=== PATIENT | female | born 1975 | race Caucasian/White ===

== ENCOUNTER → 2024-01-17 18:21 | Outpatient (REF) | payer OTHER, SELFPAY | LOC: WDC 18:21 | PROVIDERS: ATTENDING PHYSICIAN Obstetrics & Gynecology Gynecology; FAMILY PHYSICIAN Internal Medicine | DX: Z12.31 Encounter for screening mammogram for malignant neoplasm of breast (principal) | CPT/HCPCS: 77063; 77067 ==

== ENCOUNTER → 2024-01-28 09:48 | Outpatient (REF) | payer OTHER, SELFPAY | LOC: WDC 09:48 | PROVIDERS: ATTENDING PHYSICIAN Obstetrics & Gynecology Gynecology; FAMILY PHYSICIAN Internal Medicine | DX: R92.8 Other abnormal and inconclusive findings on diagnostic imaging of breast (principal) | CPT/HCPCS: 76642 ==

== ENCOUNTER 2024-09-09 15:09 | Emergency (ER) | payer OTHER, SELFPAY ==
[2024-09-09 15:14] VITALS: BP 151/116
--- NOTE | 2024-09-09 19:38 | ED.GENMED ---
History of Present Illness
General
Chief Complaint: Fall
Source: patient
Time Seen by Provider: 09/09/24 19:24
History of Present Illness
History of Present Illness:
Note:
CHIEF COMPLAINT(S)
Chip tooth and lip laceration following a fall.
HISTORY OF PRESENT ILLNESS
The patient is an 49-year-old female who presented for evaluation of a chipped tooth and a lacerated lip following a fall that occurred yesterday morning. According to the patient, she tripped and hit her tooth, which resulted in chipping. She also
sustained a laceration to her lip. The patient caught herself on the railing during the fall and reported hitting her head lightly. She did not lose consciousness, and confirms no associated head, neck, back, or chest pain following the incident.
There have been no symptoms of numbness or tingling in the extremities.
The patient expressed concern about possible infection and desired reassurance about the healing process. She noted that the lip laceration appeared bruised and mentioned the use of castor oil and Vaseline to keep the area moist and clean. The plan
is to continue using Vaseline and warm rinses to aid healing. The patient acknowledged no immediate need for dental intervention beyond cosmetic concerns, as the chipped tooth was classified as an Khan Class 1 fracture, indicating it did not
penetrate the pulp.
The patient also mentioned her mothers concurrent cardiac test, indicating family support and concern-related stress due to her mothers ongoing health evaluation.
During the discussion, a tetanus vaccination was recommended due to the presence of an open wound, and the patient agreed to receive the vaccination.
SOCIAL DETERMINANTS AFFECTING HEALTH
The patient mentioned family stress related to her mothers cardiac testing and mentioned having three cats and a dog who sleep with her, indicating a pet-friendly environment that could pose slight infection risks post-laceration.
PAST MEDICAL HISTORY
The patient reported spinal stenosis and degenerative disease affecting her daily life, having been present for 13-15 years.
SOCIAL HISTORY
The patient denied chronic alcohol use but did not mention tobacco or illicit drug use.
MEDICATIONS
The patient takes Ibuprofen as needed for discomfort.
PHYSICAL EXAM
General: Alert, no acute distress.
Skin: Healing laceration on lip, advised to keep area clean and moist.
Head: Normocephalic, atraumatic.
Neck: Supple, trachea midline, no C-spine tenderness.
Eye Ears, Nose, Mouth and Throat: Oral mucosa moist, presence of Khan Class 1 fracture on tooth number 9, no looseness of teeth.
Cardiovascular: Normal peripheral perfusion, no edema.
Respiratory: Respirations are non-labored.
Gastrointestinal: Abdomen nondistended.
Back: Normal range of motion, normal alignment, no midline tenderness.
Musculoskeletal: Normal range of motion, normal strength.
Neurological: Alert and oriented to person, place, time, and situation, cranial nerves intact, no focal neurological deficits observed.
Psychiatric: Cooperative, appropriate mood & affect.
PROBLEM LIST
Acute Problems:
1. Lip laceration
2. Khan Class 1 fracture of tooth
Chronic Problems:
1. Spinal stenosis
2. Degenerative disc disease
PLAN
1. Continue using Vaseline and performing warm rinses to promote healing of the lip laceration.
2. Administer tetanus vaccine due to an open wound.
3. Encourage follow-up with a dentist for cosmetic concerns regarding the chipped tooth.
4. Advise against allowing pets to lick the wound and maintain good hygiene practices.
DIFFERENTIAL DIAGNOSIS
The differential diagnosis includes, in no particular order and is not limited to:
1. Soft tissue contusion
2. Lip laceration
3. Dental fracture
4. Maxillofacial trauma
5. Head injury without concussion
6. Spinal injury
7. Dental infection (possible future complication)
8. Tetanus risk due to injury
9. Stress-related symptom exacerbation
10. Infection due to domestic animals (preventative measure advised)
CARE-UPDATE
09/09/24 - 19:41
Addendum: Patients friend reports that the patient experienced a fall yesterday. No further details about injuries or symptoms related to the fall were provided during the conversation. Monitoring for any delayed symptoms or concerns is advised.
CARE-UPDATE
09/09/24 - 19:43
The patient was noted to be hypotensive in the emergency department. She reports feeling stressed due to her recent visit and fall, compounded by her concern for her mothers emergent chest pain situation. Patient agrees to follow up with her doctor
for repeat blood pressure measurements.
Disposition:
SUMMARY OF ENCOUNTER
The patient, a 49-year-old female, was evaluated in the emergency department following a fall that resulted in a chipped tooth and a lacerated lip. The patient did not lose consciousness and reported no neck or spine symptoms, indicating no
significant head or spinal injury. Her vital signs showed hypotension, likely related to stress due to her mother�s health condition. During the visit, a tetanus vaccination was administered due to the open wound on her lip. The lip laceration could
not be repaired as it occurred the day prior. No immediate dental intervention was deemed necessary apart from cosmetic concerns, and she was advised to follow up with a dentist.
DISPOSITION
Discharge.
ASSESSMENT
The patient sustained a lip laceration and an Khan Class 1 fracture of a tooth following a fall. There were no signs of significant head or neck injury, and she expressed anxiety potentially contributing to her hypertensive event.
PLAN
1. Continue to use Vaseline and perform warm rinses for lip laceration healing.
2. Given tetanus vaccination due to the risk of infection from an open wound.
3. Strongly advised dental follow-up for the chipped tooth, primarily to address cosmetic concerns.
4. The patient was counseled on stress management due to her mothers concurrent cardiac evaluation and advised to maintain close follow-up with her primary care provider.
PATIENT EDUCATION AND COUNSELING
The patient was advised on the importance of keeping the laceration clean and the use of Vaseline and warm rinses. She was educated about the potential risks of infection due to her pet-friendly environment and advised against letting pets lick the
wound.
FOLLOW-UP INSTRUCTIONS
The patient was instructed to follow up with a dentist for her chipped tooth and to schedule an appointment with her primary care physician to monitor her blood pressure due to noted hypertension and anxiety during this visit.
MEDICATION RECONCILIATION
1. Tetanus vaccine administered in the emergency department.
2. Ibuprofen, as needed for discomfort (as the patient reported taking it prior).
MEDICAL DECISION MAKING
-Number and Complexity of Problems Addressed:
Chronic conditions affecting care include spinal stenosis and degenerative disc disease. Differential diagnosis includes soft tissue contusion, lip laceration, dental fracture, maxillofacial trauma, head injury without concussion, stress-related
symptom exacerbation, and potential infection due to domestic animals. Uncontrolled hypertension.
-Data:
Category 2
Clinical information was obtained from an independent historian noted as the patients friend, who reported the fall occurred yesterday.
-Risk:
Consideration of Admission/Observation: Escalation of care, including admission/observation, was considered given the complexity and risk of the patients presenting complaint, exam findings, and their underlying comorbidities. However, ultimately, I
feel the patient is safe for outpatient management with close follow-up. Reasoning: Work-up reassuring, does not reveal any acute life/organ threatening processes, patients symptoms well controlled upon reevaluation, reexamination is reassuring,
vitals are stable, patient agreeable with discharge, reliable for follow-up.
Care significantly affected by Social Determinants of Health: Patients stress due to her mothers cardiac evaluation.
DIAGNOSIS
1. Lip laceration (S01.511A)
2. Khan Class 1 fracture of tooth (S02.5XXA)
3. Hypertension due to stress
Past History
Past History
ED Past Medical History: None
ED Past Surgical History: None
Social History
Tobacco: Smoker
Alcohol: Occasional
Family History
Family History: Negative Diabetes, Hypertension or CAD
Phy Exam
Physical Exam
Physical Exam:
.
Course
Orders/Labs/Results
Orders:
Orders
09/09/24 19:38
Tetanus/Diphth/Acelpertussis [Adacel] 0.5 ml IM .ONCE ONE
Vital Signs
Initial and Last Documented VS:
Initial Vital Signs
Temp Pulse Resp BP Pulse Ox
98.3 F 85 19 151/116 97
09/09/24 15:14 09/09/24 15:14 09/09/24 15:14 09/09/24 15:14 09/09/24 15:14
Last Documented Vital Signs
Temp Pulse Resp BP Pulse Ox
98.3 F 73 20 151/116 100
09/09/24 15:14 09/09/24 19:26 09/09/24 19:26 09/09/24 15:14 09/09/24 19:26
*Pulse Oximetry
SaO2: 100
Oxygen Mode of Delivery: Room air
Patient hypoxic: no
*Critical Care Note
Total Time (30-74mins, 75-104mins- exclusive of procedures): Not Applicable
ED Attending Note
-
Portions of this chart may have been created with voice recognition software.� Occasional wrong word or��sound alike� substitutions may have occurred due to the inherent limitations of voice recognition software.
Discharge Plan
Departure
Patient Disposition: Home (Routine Discharge)
Date of Disposition: 09/09/24
Time of Disposition: 19:39
Patient with high blood pressure during this ER visit?: Yes
Discharge Problem:
Fracture of tooth, Laceration of lip
Instructions: Wound Care (DC), Fractured Tooth (DC), BLOOD PRESSURE
Prescriptions:
No Action
ibuprofen [Advil] 200 MG tablet
3 tab PO PRN PRN (Reason: pain)
Referrals:
Francisco Arguelles MD [Family Provider, Internal Medicine]
Activity Restrictions/Additional Instructions:
Your blood pressure was elevated while in the Emergency Department, please have your doctor re-evaluate it in the next 48 hours as untreated hypertension may lead to serious complications.
Keep wound clean and dry and rinse with salt water rinses. Use Vaseline as a protectant and to keep the wound moist. Return immediately for increased swelling, drainage, fevers or any other concerns.
Interventions
Interventions:
*Risk Screen - Suicide Last Done: 09/09/24 15:14
*General Assessment Last Done: 09/09/24 15:57
*Neglect/Abuse Screening Last Done: 09/09/24 15:14
*ED- Fall Risk Assessment Last Done: 09/09/24 15:57
*ED COVID-19 Vaccine History Last Done: 09/09/24 19:25
ED-Musculoskeletal Assessment Last Done: 09/09/24 15:57
ED- Neurological Assessment Last Done: 09/09/24 15:57
ED-Skin Assessment Last Done: 09/09/24 15:57
Discharge Date and Time
Print Language: CITIZEN OF [place]
[2024-09-09] MEDS: ADACEL 0.5 ML IM (20:05)
[2024-09-09 20:13] VITALS: BP 193/117
== END 2024-09-09 20:15 | disposition home or self-care (01) ==
LOC: EMR 15:09
PROVIDERS: EMERGENCY PHYSICIAN Emergency Medicine; FAMILY PHYSICIAN Internal Medicine
DX: S02.5XXA Fracture of tooth (traumatic), initial encounter for closed fracture (principal); S01.511A Laceration without foreign body of lip, initial encounter; W19.XXXA Unspecified fall, initial encounter; W22.8XXA Striking against or struck by other objects, initial encounter; Z23 Encounter for immunization; M48.00 Spinal stenosis, site unspecified; M51.35 Other intervertebral disc degeneration, thoracolumbar region; F17.200 Nicotine dependence, unspecified, uncomplicated; R03.0 Elevated blood-pressure reading, without diagnosis of hypertension; Z91.048 Other nonmedicinal substance allergy status
CPT/HCPCS: 99282; 90471; 90715